=== PATIENT | male | born 1975 | race Caucasian/White ===

== ENCOUNTER 2016-03-10 11:52 | Inpatient (IN) | payer OTHER ==
[2016-03-10 15:25] VITALS: BMI 24.9
--- NOTE | 2016-03-10 15:53 | HP ---
COWS - Scale Resting Pulse: 0= [place] 80 or Below Sweatin=Flushed/Facial Moisture Restless Observation: 3= Extraneous Movement Pupil Size: 2= Moderately Dilated Bone or Joint Aches: 2= Severe Diffuse Aches Runny Nose/ Eye Tearin= Runny Nose/Eyes GI Upset > 30mins: 3= Vomiting/Diarrhea Tremor Observation: 2= Slight Tremor Visible Yawning Observation: 2= >3x During Session Anxiety or Irritability: 2=Irritable/Anxious Goose Flesh Skin: 0=Smooth Skin COWS Score: 20 CIWA Score - CIWA Score Nausea/Vomitin Muscle Tremors: 3 Anxiety: 3 Agitation: 3 Paroxysmal Sweats: 2 Orientation: 0-Oriented Tacttile Disturbances: 2-Mild Itch/Numbness/Burn Auditory Disturbances: 2-Mild Harshness/Frighten Visual Disturbances: 2-Mild Sensitivity Headache: 2-Mild CIWA-Ar Total Score: 22 Admission ROS BHS - HPI Chief Complaint: I NEED HELP TO STOP USING HEROIN,COCAINE,ALCOHOL AND XANAX Allergies/Adverse Reactions: Allergies Allergy/AdvReac Type Severity Reaction Status Date / Time No Known Allergies Allergy Verified 03/10/16 15:15 History of Present Illness: THIS 40 YEARS OLD MALE WITH HEROIN,ALCOHOL,COCAINE AND XANAX DEPENDENCE, WITHDRAWAL SYMPTOM,LAST DETOX 02/07/16 TO 02/10/16 HEPATITIS C WEIGHT LOSS ANXIETY AND DEPRESSION LONGEST PERIOD OF SOBRIETY 8 YEARS NICOTINE DEPENDENCE - Ebola screening Have you traveled outside of the country in the last 21 days: No (N) Have you had contact with anyone from an Ebola affected area: No Have you been sick,other than usual withdrawal symptoms: No Do you have a fever: No - Review of Systems Constitutional: Chills, Diaphoresis, Loss of Appetite, Malaise, Night Sweats, Changes in sleep, Weakness, Unintentional Wgt. Loss EENT: reports: Hearing Loss, Nose Congestion Respiratory: reports: No Symptoms reported Cardiac: reports: No Symptoms Reported GI: reports: Diarrhea, Nausea, Vomiting, Abdominal cramping : reports: No Symptoms Reported Musculoskeletal: reports: Back Pain, Joint Pain, Muscle Pain, Joint Stiffness Integumentary: reports: Dryness Neuro: reports: Headache, Tremors Endocrine: reports: No Symptoms Reported Hematology: reports: No Symptoms Reported Psychiatric: reports: Anxious, Depressed Patient History - Patient Medical History Hx Anemia: No Hx Asthma: No Hx Chronic Obstructive Pulmonary Disease (COPD): No Hx Cancer: No Hx Cardiac Disorders: No Hx Congestive Heart Failure: No Hx Hypertension: No Hx Hypercholesterolemia: No Hx Pacemaker: No HX Cerebrovascular Accident: No Hx Seizures: No Hx Dementia: No Hx Diabetes: No Hx Gastrointestinal Disorders: No Hx Liver Disease: No Hx Genitourinary Disorders: No Hx Sexually Transmitted Disorders: No Hx Renal Disease (ESRD): No Hx Thyroid Disease: No Hx Human Immunodeficiency Virus (HIV): No (LAST NEGATIVE 05/22) Hx Hepatitis C: Yes (was treated. ) Hx Depression: Yes Hx Suicide Attempt: Yes Hx Bipolar Disorder: No Hx Schizophrenia: No Other Medical History: NO SUICIDAL,NO HOMICIDAL - Patient Surgical History Past Surgical History: Yes Hx Cholecystectomy: Yes (in 2009 [facility]) - PPD History Previous Implant?: No Date: 02/09/16 - Smoking Cessation Smoking history: Current every day smoker Have you smoked in the past 12 months: Yes Aproximately how many cigarettes per day: 15 Cigars Per Day: 0 Hx Chewing Tobacco Use: No Initiated information on smoking cessation: Yes 'Breaking Loose' booklet given: 03/10/16 - Substance & Tx. History Hx Alcohol Use: Yes Hx Substance Use: Yes Substance Use Type: Alcohol, Cocaine, Heroin, Tranquilizers Hx Substance Use Treatment: Yes (LAST [facility] 02.07.16 TO 02/10/16) - Substances Abused Heroin Route: Injection Frequency: Daily Amount used: $50 Age of first use: 19 Date of Last Use: 03/10/16 Cocaine Route: Injection Frequency: Daily Amount used: $50 Age of first use: 19 Date of Last Use: 03/09/16 Alcohol Route: Oral Frequency: Daily Amount used: 8 cans beer Cobra Age of first use: 15 Date of Last Use: 03/09/16 Alprazolam (Xanax) Route: Oral Frequency: Daily Amount used: 15 Age of first use: 17 Date of Last Use: 03/10/16 Family Disease History - Family Disease History Family Disease History: CA: Father (stomach ca ), Other: Mother (mva ) Admission Physical Exam BHS - Vital Signs Vital Signs: Vital Signs - 24 hr 03/10/16 15:23 Temperature 96.5 F L Pulse Rate 59 L Respiratory 16 Rate Blood Pressure 112/72 - Physical General Appearance: Yes: Moderate Distress, Tremorous, Irritable, Sweating, Anxious HEENTM: Yes: Nasal Congestion Respiratory: Yes: Lungs Clear Neck: Yes: Within Normal Limits Breast: Yes: Within Normal Limits Cardiology: Yes: Within Normal Limits, Regular Rhythm, Regular Rate, S1, S2 Abdominal: Yes: Within Normal Limits, Normal Bowel Sounds, Non Tender, Flat, Soft Genitourinary: Yes: Within Normal Limits Back: Yes: Muscle Spasm Musculoskeletal: Yes: Within Normal Limits, Back pain, Muscle Pain, Muscle weakness Extremities: Yes: Tremors Neurological: Yes: director digital strategy II-XII NML intact, Fully Oriented, Alert, Motor Strength 5/5 Integumentary: Yes: Dry Lymphatic: Yes: Within Normal Limits - Diagnostic (1) Alcohol dependence with uncomplicated withdrawal Current Visit: No Status: Acute (2) Opioid dependence with withdrawal Current Visit: No Status: Acute (3) Nicotine dependence Current Visit: No Status: Chronic Qualifiers: Nicotine product type: cigarettes Substance use status: uncomplicated Qualified Code(s): F17.210 - Nicotine dependence, cigarettes, uncomplicated (4) Sedative, hypnotic or anxiolytic dependence with withdrawal, uncomplicated Current Visit: No Status: Chronic (5) Cocaine dependence Current Visit: Yes Status: Acute (6) Weight loss Current Visit: Yes Status: Acute (7) S/P laparoscopic cholecystectomy Current Visit: Yes Status: Acute Cleared for Admission [facility] - Detox or Rehab [facility] Level of Care: Medically Managed Detox Regimen/Protocol: Methadone/Valium [facility] Breath Alcohol Content Breath Alcohol Content: 0 Urine Drug Screen - Results Drug Screen Negative: No Urine Drug Screen Results: KORI-Cocaine, OPI-Opiates, BZO-Benzodiazepines, MTD- Methadone, OXY-Oxycodone
[2016-03-10] MEDS ORDERED: P-EPHED 60MG/TRIPROLIDI 2.5MG TABLET PO PRN (16:05)
[2016-03-10] MEDS ORDERED: IBUPROFEN 400 MG TABLET (FP) PO PRN (16:05)
[2016-03-10] MEDS ORDERED: MENTHOL/PHENOL 1 EACH UD MM PRN (16:05)
[2016-03-10] MEDS ORDERED: LOPERAMIDE HCL 2 MG CAPSULE PO PRN (16:05)
[2016-03-10] MEDS ORDERED: guaiFENesin/D-METHORPHAN HB 10 ML UNIT-DOSE CUPS PO PRN (16:05)
[2016-03-10] MEDS ORDERED: ACETAMINOPHEN 325 MG TABLET (FP) PO PRN (16:05)
[2016-03-10] MEDS ORDERED: hydrOXYzine PAMOATE 50 MG CAPSULE (FP) PO PRN (16:05)
[2016-03-10] MEDS ORDERED: MAGNESIUM HYDROX 2400MG/30ML ORAL SUSPENSION 30 ML CUP PO PRN (16:05)
[2016-03-10] MEDS ORDERED: MAG HYDROX/AL HYDROX/SIMETH 30 ML UNIT-DOSE CUP PO PRN (16:05)
[2016-03-10] MEDS ORDERED: MAGNESIUM CITRATE 300 ML BOTTLE PO PRN (16:05)
[2016-03-10] MEDS ORDERED: CYCLOBENZAPRINE HCL 10 MG TABLET (FP) PO PRN (16:11)
[2016-03-10] MEDS ORDERED: diazePAM 5 MG TABLET PO ONE (16:30)
[2016-03-10] MEDS ORDERED: METHADONE HCL 10 MG TABLET (FOR DETOX USE ONLY) PO ONE ×2 (16:30→23:00)
[2016-03-10] MEDS: cloNIDine HCL 0.1 MG TABLET PO SCH (22:30)
[2016-03-10] MEDS: THIAMINE HCL 100 MG TABLET (FP) PO SCH (22:30)
[2016-03-10] MEDS: diazePAM 5 MG TABLET PO SCH (22:30)
[2016-03-11] MEDS: diazePAM 5 MG TABLET PO SCH ×3 (05:22→22:18)
[2016-03-11] MEDS ORDERED: METHADONE HCL 10 MG TABLET (FOR DETOX USE ONLY) PO SCH (10:00)
[2016-03-11] MEDS: NICOTINE 21 MG/24 HOURS TOPICAL PATCH TD SCH (10:11)
[2016-03-11] MEDS: PANTOPRAZOLE 40 MG TABLET (FP) PO SCH (10:12)
[2016-03-11] MEDS: PRENATAL VITAMINS W/ FOLIC ACID TABLET (FP) PO SCH (10:12)
[2016-03-11] MEDS: cloNIDine HCL 0.1 MG TABLET PO SCH ×2 (10:12→22:18)
--- NOTE | 2016-03-11 10:41 | PN ---
[facility] CIWA - CIWA Score Nausea/Vomitin-No Nausea/No Vomiting Muscle Tremors: 3 Anxiety: 3 Agitation: 4-Moderately Restless Paroxysmal Sweats: 3 Orientation: 0-Oriented Tacttile Disturbances: 1-Very Mild Itch/Numbness Auditory Disturbances: 0-None Visual Disturbances: 0-None Headache: 0-None Present CIWA-Ar Total Score: 14 S COWS - Scale Resting Pulse: 0= [place] 80 or Below Sweatin=Flushed/Facial Moisture Restless Observation: 1= Difficult to Sit Still Pupil Size: 0= Normal to Room Light Bone or Joint Aches: 1= Mild Discomfort Runny Nose/ Eye Tearin= Nasal Congestion GI Upset > 30mins: 2= Nausea/Diarrhea Tremor Observation of Outstretched Hands: 2= Slight Tremor Visible Yawning Observation: 1= 1-2x During Session Anxiety or Irritability: 2=Irritable/Anxious Goose Flesh Skin: 0=Smooth Skin COWS Score: 12 S Progress Note (SOAP) Subjective: ANXIETY,TREMORS,SWEATING,INTERRUPTED SLEEP,RESTLESS Objective: 03/11/16 10:40 Vital Signs - 8 hr 03/11/16 03/11/16 03:30 06:45 Temperature 97.7 F Pulse Rate 54 L Respiratory 18 18 Rate Blood Pressure 101/65 Assessment: 03/11/16 10:40 WITHDRAWAL SX. Plan: CONTINUE DETOX
[2016-03-11 11:07] LABS: MCH 28.7 pg (25.7-33.7); MCHC 33.5 g/dl (32.0-35.9); MEAN CELL VOLUME 85.7 fl (80-96); PLATELET COUNT 103 K/MM3 (134-434); RDW 13.2 % (11.9-15.9); WHITE BLOOD COUNT 6.2 K/mm3 (4.0-10.0)
[2016-03-11 11:13] LABS: ALBUMIN 3.3 g/dl (3.4-5.0); ANION GAP 6 (8-16); CO2 30 mmol/L (21-32); GLUCOSE,RANDOM 96 mg/dL (74-106); SGOT/AST 37 U/L (15-37); SGPT/ALT 57 U/L (12-78)
[2016-03-11 11:15] LABS: ALK PHOS 133 U/L (45-117); BILIRUBIN,TOTAL 0.3 mg/dL (0.2-1.0); CALCIUM 8.3 mg/dL (8.5-10.1); CREATININE 0.7 mg/dL (0.7-1.3); TOT PROT 6.2 g/dl (6.4-8.2)
[2016-03-11] MEDS ORDERED: INFLUENZA VACCINE 45 MCG/0.5 ML (MDV 16-17) IM ONE (12:00)
--- NOTE | 2016-03-11 15:23 | CONSULT ---
[facility] Psychiatric Consult - Data Date of interview: 03/11/16 Admission source: [facility] Identifying data: Second admission to [facility] for this 40 y/o male seeking detox treatment on for heroin,cocaine and benzodiazepine dependence.Patient is single,a father of two,domiciled,unemployed and dependent on food stamps. Substance Abuse History: - Smoking Cessation. Smoking history: Current every day smoker. Have you smoked in the past 12 months: Yes. Aproximately how many cigarettes per day: 15. Cigars Per Day: 0. Hx Chewing Tobacco Use: No. Initiated information on smoking cessation: Yes. 'Breaking Loose' booklet given : 03/10/16. - Substance & Tx. History. Hx Alcohol Use: Yes. Hx Substance Use : Yes. Substance Use Type: Alcohol, Cocaine, Heroin, Tranquilizers. Hx Substance Use Treatment: Yes (LAST [facility] 02.07.16 TO 02/10/16). - Substances Abused. Heroin. Route: Injection. Frequency: Daily. Amount used: $50. Age of first use: 19. Date of Last Use: 03/10/16. Cocaine. Route: Injection. Frequency: Daily. Amount used: $50. Age of first use: 19. Date of Last Use: 03/09/16. Alcohol. Route: Oral. Frequency: Daily. Amount used: 8 cans beer Cobra. Age of first use: 15. Date of Last Use: 03/09/16. * * Alprazolam (Xanax). Route: Oral. Frequency: Daily. Amount used: 15. Age of first use: 17. Date of Last Use: 03/10/16. Confirmed by patient. Medical History: Consistent with hepatitis C,GERD and a history of cholecystectomy (2009). Psychiatric History: History of one psychiatric hospitalization years ago.Diagnosed with PTSD (years of incarceration).Patient denies being on any medications.No OPD care.Mr Johnson indicates that he is only motivated for detox treatment.No reported history of suicide attempts. Physical/Sexual Abuse/Trauma History: Patient denies. Additional Comment: Urine Drug Screen Results: KORI-Cocaine, OPI-Opiates, BZO- Benzodiazepines, MTD-Methadone, OXY-Oxycodone.Noted. Mental Status Exam - Mental Status Exam Alert and Oriented to: Time, Place, Person Cognitive Function: Good Patient Appearance: Well Groomed Mood: Hopeful, Euthymic Affect: Normal Range Patient Behavior: Fatigued, Appropriate, Cooperative Speech Pattern: Clear Voice Loudness: Normal Thought Process: Goal Oriented Hallucinations: Denies Suicidal Ideation: Denies Homicidal Ideation: Denies Insight/Judgement: Poor Sleep: Well Appetite: Good Muscle strength/Tone: Normal Gait/Station: Normal Psychiatric Findings - Problem List ([place] 1, 2,3) (1) Opioid dependence with withdrawal Current Visit: Yes Status: Acute (2) Alcohol dependence with uncomplicated withdrawal Current Visit: Yes Status: Acute (3) Cocaine dependence Current Visit: Yes Status: Acute (4) Sedative, hypnotic or anxiolytic dependence with withdrawal, uncomplicated Current Visit: Yes Status: Acute (5) Nicotine dependence Current Visit: Yes Status: Acute Qualifiers: Nicotine product type: cigarettes Substance use status: uncomplicated Qualified Code(s): F17.210 - Nicotine dependence, cigarettes, uncomplicated (6) Substance induced mood disorder Current Visit: Yes Status: Suspected (7) S/P laparoscopic cholecystectomy Current Visit: Yes Status: Chronic - Initial Treatment Plan Initial Treatment Plan: Psychoeducation.Detoxification.Observation.
[2016-03-11 20:14] LABS: URINE APPEARANCE CLEAR; URINE BILIRUBIN NEGATIVE (NEGATIVE); URINE BLOOD NEGATIVE (NEGATIVE); URINE COLOR STRAW; URINE GLUCOSE (UA) NEGATIVE (NEGATIVE); URINE KETONE NEGATIVE (NEGATIVE); URINE LEUK ESTERASE NEGATIVE (NEGATIVE); URINE NITRITE NEGATIVE (NEGATIVE); URINE PROTEIN NEGATIVE (NEGATIVE); URINE UROBILINOGEN NEGATIVE E.U./dl (0.2-1.0)
[2016-03-11] MEDS: diphenhydrAMINE HCL 50 MG CAPSULE PO PRN (22:18)
[2016-03-11] MEDS: THIAMINE HCL 100 MG TABLET (FP) PO SCH (22:18)
[2016-03-12] MEDS: METHADONE HCL 5 MG TABLET (FOR DETOX USE ONLY) PO SCH (10:26)
[2016-03-12] MEDS: diazePAM 5 MG TABLET PO SCH ×2 (10:26→22:14)
[2016-03-12] MEDS: PRENATAL VITAMINS W/ FOLIC ACID TABLET (FP) PO SCH (10:26)
[2016-03-12] MEDS: PANTOPRAZOLE 40 MG TABLET (FP) PO SCH (10:26)
[2016-03-12] MEDS: cloNIDine HCL 0.1 MG TABLET PO SCH ×2 (10:27→22:14)
[2016-03-12] MEDS: NICOTINE 21 MG/24 HOURS TOPICAL PATCH TD SCH (10:27)
--- NOTE | 2016-03-12 11:08 | PN ---
[facility] CIWA - CIWA Score Nausea/Vomitin Muscle Tremors: 3 Anxiety: 3 Agitation: 2 Paroxysmal Sweats: 1-Minimal Palms Moist Orientation: 0-Oriented Tacttile Disturbances: 1-Very Mild Itch/Numbness Auditory Disturbances: 1-Very Mild Visual Disturbances: 1-Very Mild Sensitivity Headache: 2-Mild CIWA-Ar Total Score: 17 BHS COWS - Scale Resting Pulse: 0= [place] 80 or Below Sweatin=Flushed/Facial Moisture Restless Observation: 3= Extraneous Movement Pupil Size: 1= Pupils >than Normal Bone or Joint Aches: 2= Severe Diffuse Aches Runny Nose/ Eye Tearin= Runny Nose/Eyes GI Upset > 30mins: 2= Nausea/Diarrhea Tremor Observation of Outstretched Hands: 2= Slight Tremor Visible Yawning Observation: 1= 1-2x During Session Anxiety or Irritability: 2=Irritable/Anxious Goose Flesh Skin: 0=Smooth Skin COWS Score: 17 [facility] Progress Note (SOAP) Subjective: ALERT,IRRITABLE,ANXIOUS,INTERRUPTED SLEEP,TREMOR,PAIN IN THE BODY AND BACK Objective: 03/12/16 11:06 Vital Signs Temperature 97.5 F L 03/12/16 09:47 Pulse Rate 55 L 03/12/16 09:47 Respiratory Rate 18 03/12/16 09:47 Blood Pressure 108/65 03/12/16 09:47 O2 Sat by Pulse Oximetry (%) EKG INVERTED T IN 3,SINUS BRADYCARDIA 56/MIN NO CHEST PAIN,NO SOB,NO DIZZINESS Laboratory Last Values WBC 6.2 K/mm3 (4.0-10.0) 03/11/16 06:30 RBC 4.80 M/mm3 (4.00-5.60) 03/11/16 06:30 Hgb 13.8 GM/dL (11.7-16.9) D 03/11/16 06:30 Hct 41.1 % (35.4-49) 03/11/16 06:30 MCV 85.7 fl (80-96) 03/11/16 06:30 MCHC 33.5 g/dl (32.0-35.9) 03/11/16 06:30 RDW 13.2 % (11.9-15.9) 03/11/16 06:30 Plt Count 103 K/MM3 (134-434) L D 03/11/16 06:30 MPV 10.0 fl (7.5-11.1) D 03/11/16 06:30 Sodium 138 mmol/L (136-145) 03/11/16 06:30 Potassium 4.0 mmol/L (3.5-5.1) 03/11/16 06:30 Chloride 102 mmol/L (98-107) 03/11/16 06:30 Carbon Dioxide 30 mmol/L (21-32) 03/11/16 06:30 Anion Gap 6 (8-16) L 03/11/16 06:30 BUN 16 mg/dL (7-18) 03/11/16 06:30 Creatinine 0.7 mg/dL (0.7-1.3) 03/11/16 06:30 Creat Clearance w eGFR > 60 (>60) 03/11/16 06:30 Random Glucose 96 mg/dL (74-106) 03/11/16 06:30 Calcium 8.3 mg/dL (8.5-10.1) L 03/11/16 06:30 Total Bilirubin 0.3 mg/dL (0.2-1.0) D 03/11/16 06:30 AST 37 U/L (15-37) 03/11/16 06:30 ALT 57 U/L (12-78) 03/11/16 06:30 Alkaline Phosphatase 133 U/L (45-117) H 03/11/16 06:30 Total Protein 6.2 g/dl (6.4-8.2) L D 03/11/16 06:30 Albumin 3.3 g/dl (3.4-5.0) L D 03/11/16 06:30 Urine Color Straw 03/11/16 19:30 Urine Appearance Clear 03/11/16 19:30 Urine pH 8.0 (5.0-8.0) 03/11/16 19:30 Ur Specific [place] 1.008 (1.001-1.035) 03/11/16 19:30 Urine Protein Negative (NEGATIVE) 03/11/16 19:30 Urine Glucose (UA) Negative (NEGATIVE) 03/11/16 19:30 Urine Ketones Negative (NEGATIVE) 03/11/16 19:30 Urine Blood Negative (NEGATIVE) 03/11/16 19:30 Urine Nitrite Negative (NEGATIVE) 03/11/16 19:30 Urine Bilirubin Negative (NEGATIVE) 03/11/16 19:30 Urine Urobilinogen Negative E.U./dl (0.2-1.0) 03/11/16 19:30 Ur Leukocyte Esterase Negative (NEGATIVE) 03/11/16 19:30 RPR Titer Nonreactive (NONREACTIVE) 03/11/16 06:30 Assessment: 03/12/16 11:08 WITHDRAWAL SYMPTOM Plan: CONTINUE DETOX
[2016-03-12] MEDS: diazePAM 5 MG TABLET PO PRN (17:17)
[2016-03-12] MEDS: THIAMINE HCL 100 MG TABLET (FP) PO SCH (22:13)
[2016-03-13] MEDS: diazePAM 5 MG TABLET PO PRN (05:48)
[2016-03-13] MEDS: METHADONE HCL 5 MG TABLET (FOR DETOX USE ONLY) PO SCH (10:39)
[2016-03-13] MEDS: diazePAM 5 MG TABLET PO SCH ×2 (10:39→22:20)
[2016-03-13] MEDS: PRENATAL VITAMINS W/ FOLIC ACID TABLET (FP) PO SCH (10:39)
[2016-03-13] MEDS: cloNIDine HCL 0.1 MG TABLET PO SCH ×2 (10:39→22:20)
[2016-03-13] MEDS: PANTOPRAZOLE 40 MG TABLET (FP) PO SCH (10:40)
[2016-03-13] MEDS: NICOTINE 21 MG/24 HOURS TOPICAL PATCH TD SCH (10:40)
--- NOTE | 2016-03-13 11:19 | PN ---
BHS Progress Note (SOAP) Subjective: SWEATING,INTERRUPTED SLEEP,RESTLESS. Objective: 03/13/16 11:17 Vital Signs - 8 hr 03/13/16 03/13/16 03/13/16 03:30 06:31 09:46 Temperature 97.7 F 96.1 F L Pulse Rate 49 L 58 L Respiratory 16 18 18 Rate Blood Pressure 116/77 114/75 Laboratory Last Values WBC 6.2 K/mm3 (4.0-10.0) 03/11/16 06:30 RBC 4.80 M/mm3 (4.00-5.60) 03/11/16 06:30 Hgb 13.8 GM/dL (11.7-16.9) D 03/11/16 06:30 Hct 41.1 % (35.4-49) 03/11/16 06:30 MCV 85.7 fl (80-96) 03/11/16 06:30 MCHC 33.5 g/dl (32.0-35.9) 03/11/16 06:30 RDW 13.2 % (11.9-15.9) 03/11/16 06:30 Plt Count 103 K/MM3 (134-434) L D 03/11/16 06:30 MPV 10.0 fl (7.5-11.1) D 03/11/16 06:30 Sodium 138 mmol/L (136-145) 03/11/16 06:30 Potassium 4.0 mmol/L (3.5-5.1) 03/11/16 06:30 Chloride 102 mmol/L (98-107) 03/11/16 06:30 Carbon Dioxide 30 mmol/L (21-32) 03/11/16 06:30 Anion Gap 6 (8-16) L 03/11/16 06:30 BUN 16 mg/dL (7-18) 03/11/16 06:30 Creatinine 0.7 mg/dL (0.7-1.3) 03/11/16 06:30 Creat Clearance w eGFR > 60 (>60) 03/11/16 06:30 Random Glucose 96 mg/dL (74-106) 03/11/16 06:30 Calcium 8.3 mg/dL (8.5-10.1) L 03/11/16 06:30 Total Bilirubin 0.3 mg/dL (0.2-1.0) D 03/11/16 06:30 AST 37 U/L (15-37) 03/11/16 06:30 ALT 57 U/L (12-78) 03/11/16 06:30 Alkaline Phosphatase 133 U/L (45-117) H 03/11/16 06:30 Total Protein 6.2 g/dl (6.4-8.2) L D 03/11/16 06:30 Albumin 3.3 g/dl (3.4-5.0) L D 03/11/16 06:30 Urine Color Straw 03/11/16 19:30 Urine Appearance Clear 03/11/16 19:30 Urine pH 8.0 (5.0-8.0) 03/11/16 19:30 Ur Specific [place] 1.008 (1.001-1.035) 03/11/16 19:30 Urine Protein Negative (NEGATIVE) 03/11/16 19:30 Urine Glucose (UA) Negative (NEGATIVE) 03/11/16 19:30 Urine Ketones Negative (NEGATIVE) 03/11/16 19:30 Urine Blood Negative (NEGATIVE) 03/11/16 19:30 Urine Nitrite Negative (NEGATIVE) 03/11/16 19:30 Urine Bilirubin Negative (NEGATIVE) 03/11/16 19:30 Urine Urobilinogen Negative E.U./dl (0.2-1.0) 03/11/16 19:30 Ur Leukocyte Esterase Negative (NEGATIVE) 03/11/16 19:30 RPR Titer Nonreactive (NONREACTIVE) 03/11/16 06:30 LABS NOTED Assessment: 03/13/16 11:18 WITHDRAWAL SX. Plan: CONTINUE DETOX
[2016-03-13] MEDS: THIAMINE HCL 100 MG TABLET (FP) PO SCH (22:19)
[2016-03-13] MEDS: diphenhydrAMINE HCL 50 MG CAPSULE PO PRN (22:20)
[2016-03-14 09:41] VITALS: BP 120/68; PULSE 52; TEMP 96.7
[2016-03-14] MEDS ORDERED: METHADONE HCL 10 MG TABLET (FOR DETOX USE ONLY) PO SCH (10:00)
[2016-03-14] MEDS ORDERED: diazePAM 5 MG TABLET PO SCH (10:00)
[2016-03-14] MEDS: PANTOPRAZOLE 40 MG TABLET (FP) PO SCH (10:33)
[2016-03-14] MEDS: NICOTINE 21 MG/24 HOURS TOPICAL PATCH TD SCH (10:33)
[2016-03-14] MEDS: PRENATAL VITAMINS W/ FOLIC ACID TABLET (FP) PO SCH (10:33)
[2016-03-14] MEDS: cloNIDine HCL 0.1 MG TABLET PO SCH (10:33)
--- NOTE | 2016-03-14 15:26 | DS ---
[facility] Detox Discharge Summary Admission Date: 03/10/16 Discharge Date: 03/14/16 - History Present History: Alcohol Dependence, Cocaine Dependence, Opioid Dependence, Sedative Dependence Pertinent Past History: GERD - Physical Exam Results Vital Signs: Vital Signs Temperature 96.7 F L 03/14/16 09:40 Pulse Rate 52 L 03/14/16 09:40 Respiratory Rate 18 03/14/16 09:40 Blood Pressure 120/68 03/14/16 09:40 O2 Sat by Pulse Oximetry (%) Pertinent Admission Physical Exam Findings: WITHDRAWAL SX. Laboratory Last Values WBC 6.2 K/mm3 (4.0-10.0) 03/11/16 06:30 RBC 4.80 M/mm3 (4.00-5.60) 03/11/16 06:30 Hgb 13.8 GM/dL (11.7-16.9) D 03/11/16 06:30 Hct 41.1 % (35.4-49) 03/11/16 06:30 MCV 85.7 fl (80-96) 03/11/16 06:30 MCHC 33.5 g/dl (32.0-35.9) 03/11/16 06:30 RDW 13.2 % (11.9-15.9) 03/11/16 06:30 Plt Count 103 K/MM3 (134-434) L D 03/11/16 06:30 MPV 10.0 fl (7.5-11.1) D 03/11/16 06:30 Sodium 138 mmol/L (136-145) 03/11/16 06:30 Potassium 4.0 mmol/L (3.5-5.1) 03/11/16 06:30 Chloride 102 mmol/L (98-107) 03/11/16 06:30 Carbon Dioxide 30 mmol/L (21-32) 03/11/16 06:30 Anion Gap 6 (8-16) L 03/11/16 06:30 BUN 16 mg/dL (7-18) 03/11/16 06:30 Creatinine 0.7 mg/dL (0.7-1.3) 03/11/16 06:30 Creat Clearance w eGFR > 60 (>60) 03/11/16 06:30 Random Glucose 96 mg/dL (74-106) 03/11/16 06:30 Calcium 8.3 mg/dL (8.5-10.1) L 03/11/16 06:30 Total Bilirubin 0.3 mg/dL (0.2-1.0) D 03/11/16 06:30 AST 37 U/L (15-37) 03/11/16 06:30 ALT 57 U/L (12-78) 03/11/16 06:30 Alkaline Phosphatase 133 U/L (45-117) H 03/11/16 06:30 Total Protein 6.2 g/dl (6.4-8.2) L D 03/11/16 06:30 Albumin 3.3 g/dl (3.4-5.0) L D 03/11/16 06:30 Urine Color Straw 03/11/16 19:30 Urine Appearance Clear 03/11/16 19:30 Urine pH 8.0 (5.0-8.0) 03/11/16 19:30 Ur Specific [place] 1.008 (1.001-1.035) 03/11/16 19:30 Urine Protein Negative (NEGATIVE) 03/11/16 19:30 Urine Glucose (UA) Negative (NEGATIVE) 03/11/16 19:30 Urine Ketones Negative (NEGATIVE) 03/11/16 19:30 Urine Blood Negative (NEGATIVE) 03/11/16 19:30 Urine Nitrite Negative (NEGATIVE) 03/11/16 19:30 Urine Bilirubin Negative (NEGATIVE) 03/11/16 19:30 Urine Urobilinogen Negative E.U./dl (0.2-1.0) 03/11/16 19:30 Ur Leukocyte Esterase Negative (NEGATIVE) 03/11/16 19:30 RPR Titer Nonreactive (NONREACTIVE) 03/11/16 06:30 LABS NOTED - Treatment Hospital Course: Detox Protocol Followed, Detoxed Safely, Discharged Condition Good - Medication Discharge Medications: Ambulatory Orders Omeprazole 20 mg PO DAILY 02/07/16 - Diagnosis (1) Alcohol dependence with uncomplicated withdrawal Status: Acute (2) Cocaine dependence Status: Acute Qualifiers: Substance use status: uncomplicated Qualified Code(s): F14.20 - Cocaine dependence, uncomplicated (3) Nicotine dependence Status: Acute Qualifiers: Nicotine product type: cigarettes Substance use status: uncomplicated Qualified Code(s): F17.210 - Nicotine dependence, cigarettes, uncomplicated (4) Opioid dependence with withdrawal Status: Acute (5) Sedative, hypnotic or anxiolytic dependence with withdrawal, uncomplicated Status: Acute (6) Acid reflux Status: Chronic Qualifiers: Esophagitis presence: without esophagitis Qualified Code(s): K21.9 - Gastro-esophageal reflux disease without esophagitis (7) Substance induced mood disorder Status: Suspected - AMA Did Patient Leave Against Medical Advice: No
[2016-03-15] MEDS ORDERED: METHADONE HCL 5 MG TABLET (FOR DETOX USE ONLY) PO SCH (06:00)
== END 2016-03-14 13:35 | disposition home or self-care (01) | DRG 773 ==
LOC: YASAS 11:52 → Y3N 15:50
PROVIDERS: ADMIT Internal Medicine; ATTEND Internal Medicine
PROC: HZ2ZZZZ Detoxification Services for Substance Abuse Treatment (ICD-10-PCS; principal; 2016-03-10)
DX: F11.23 Opioid dependence with withdrawal (principal); F13.230 Sedative, hypnotic or anxiolytic dependence with withdrawal, uncomplicated; F10.230 Alcohol dependence with withdrawal, uncomplicated; F14.20 Cocaine dependence, uncomplicated; F17.210 Nicotine dependence, cigarettes, uncomplicated; F19.24 Other psychoactive substance dependence with psychoactive substance-induced mood disorder; F41.8 Other specified anxiety disorders; K21.9 Gastro-esophageal reflux disease without esophagitis; R00.1 Bradycardia, unspecified; Z90.49 Acquired absence of other specified parts of digestive tract; Z87.898 Personal history of other specified conditions; Z86.19 Personal history of other infectious and parasitic diseases
CPT/HCPCS: 36415; 80053; 81003; 85027; 86593; 93005; 93010